=== PATIENT | female | born 1985 | race Two or more races ===

== ENCOUNTER 2020-05-14 16:43 | Emergency (ER) | payer OTHER ==
[~2020-05-14] VITALS: Ht 165.1 cm; Wt 72.6 kg
[2020-05-14 17:06] VITALS: BP 141/91
[2020-05-14] MEDS ORDERED: KETOROLAC TROMETH 60MG/2ML VIAL IM ONE (17:45)
== END 2020-05-14 18:00 | disposition home or self-care (01) ==
LOC: ER 16:43
DX: S93.402A Sprain of unspecified ligament of left ankle, initial encounter (principal); S80.01XA Contusion of right knee, initial encounter; W19.XXXA Unspecified fall, initial encounter; Y93.89 Activity, other specified; Y92.89 Other specified places as the place of occurrence of the external cause; Y99.8 Other external cause status
CPT/HCPCS: 96372; 99283; J1885